=== PATIENT | female | born 1980 | race Two or more races ===

== ENCOUNTER → 2024-04-22 06:23 | Day surgery (SDC) | payer BC, SELFPAY | LOC: GI 06:23 | PROVIDERS: ATTENDING PHYSICIAN Internal Medicine; FAMILY PHYSICIAN Family Medicine | DX: Z12.11 Encounter for screening for malignant neoplasm of colon (principal); D12.2 Benign neoplasm of ascending colon; K64.8 Other hemorrhoids; Z83.710 Family history of adenomatous and serrated polyps | CPT/HCPCS: 45385; 88305 ==